=== PATIENT | female | born 1990 | race Two or more races ===

== ENCOUNTER 2021-08-30 18:37 | Emergency (ER) | payer MEDICAID, OTHER ==
[~2021-08-30] VITALS: Ht 152.4 cm; Wt 74.8 kg
[2021-08-30 20:51] VITALS: BP 122/68
== END 2021-08-30 20:56 | disposition home or self-care (01) ==
LOC: EDBD 18:37 → ER 18:44
DX: S43.401A Unspecified sprain of right shoulder joint, initial encounter (principal); S33.5XXA Sprain of ligaments of lumbar spine, initial encounter; S46.811A Strain of other muscles, fascia and tendons at shoulder and upper arm level, right arm, initial encounter; E66.9 Obesity, unspecified; Z68.32 Body mass index [BMI] 32.0-32.9, adult; V43.62XA Car passenger injured in collision with other type car in traffic accident, initial encounter; Y93.89 Activity, other specified; Y92.410 Unspecified street and highway as the place of occurrence of the external cause; Y99.8 Other external cause status
CPT/HCPCS: 72100; 73030